=== PATIENT | female | born 1960 | race African-American/Black ===

== ENCOUNTER 2017-10-03 17:05 | Emergency (ER) | payer BC ==
[2017-10-03 17:39] LABS: ABS Basophils 0.1 10^3/ul (0-0.2); ABS Eosinophils 0.1 10^3/ul (0-0.6); ABS Lymphocytes 2.3 10^3/ul (1.0-4.8); ABS Monocytes 0.4 10^3/ul (0-0.8); ABS Neutrophils 4.6 10^3/ul (1.5-7.7); ABS Nucleated RBC 0 10^3/ul; Eosinophil % 1.8 % (0-6); Hematocrit 38 % (35-47); Hemoglobin 12.5 g/dl (12.0-16.0); Lymphocyte % 30.9 % (25-47); Mean Corpuscular HGB Conc 33 g/dl (31-36); Mean Corpuscular Hemoglobin 27 pg (27-31); Mean Corpuscular Volume 81 fL (80-97); Mean Platelet Volume 9 um3 (7.4-10.4); Nucleated Red Blood Cells % 0.1; Platelet Count 210 10^3/ul (150-450); Red Blood Count 4.73 10^6/ul (4.0-5.4); Red Cell Distribution Width 14 % (10.5-15); White Blood Count 7.4 10^3/ul (3.5-10.8)
[2017-10-03 17:48] LABS: INR 0.86 (0.77-1.02)
[2017-10-03 17:57] LABS: EGFR Non-African American 76.7 (>60)
--- NOTE | 2017-10-03 18:00 | ED ---
Lower Extremity - HPI Summary HPI Summary: 57-year-old presents with right calf pain for the past couple days. She states she was on her feet when it started. She states she has no pain at rest. She is concerned about blood clot. She denies any swelling to the area. She states her shoes are old and it may be due to such. She denies any numbness and tingling. She denies any injury. She is not a smoker. She denies any family history of blood clots. She denies any chest pain or shortness of breath. She states her shoes are old and works as nurse on the floor. - History of Current Complaint Chief Complaint: EDExtremityLower Stated Complaint: POSS DVT IN RT LEG Time Seen by Provider: 10/03/17 17:15 Pain Intensity: 6 - Allergies/Home Medications Allergies/Adverse Reactions: Allergies Allergy/AdvReac Type Severity Reaction Status Date / Time No Known Allergies Allergy Verified 11/24/15 10:21 PMH/Surg Hx/FS Hx/Imm Hx Endocrine/Hematology History: Denies: Hx Diabetes, Hx Thyroid Disease Cardiovascular History: Reports: Hx Hypertension - ON MEDS Denies: Hx Pacemaker/ICD Respiratory History: Denies: Hx Asthma, Hx Chronic Obstructive Pulmonary Disease (COPD) GI History: Reports: Hx Gastroesophageal Reflux Disease - WELL CONTROLLED Denies: Hx Ulcer History: Denies: Hx Renal Disease Musculoskeletal History: Reports: Hx Arthritis, Other Musculoskeletal History - CURRENT LEFT KNEE Sensory History: Reports: Hx Contacts or Glasses - GLASSES Denies: Hx Hearing Aid Opthamlomology History: Reports: Hx Contacts or Glasses - GLASSES Psychiatric History: Reports: Hx Depression Denies: Hx Panic Disorder - Surgical History Surgery Procedure, Year, and Place: HEMORRHOIDECTOMY 1983. UTERINE ALBATION . OVARY REMOVED A CHILD Hx Anesthesia Reactions: No Infectious Disease History: No Infectious Disease History: Denies: Hx Clostridium Difficile, Hx Hepatitis, Hx Human Immunodeficiency Virus (HIV), Hx of Known/Suspected MRSA, Hx Shingles, Hx Tuberculosis, Hx Known/ Suspected VRE, Hx Known/Suspected VRSA, History Other Infectious Disease, Traveled Outside the [place] in Last 30 Days - Family History Known Family History: Negative: Blood Disorder - Social History Alcohol Use: Weekly Substance Use Type: Reports: None Smoking Status (MU): Never Smoked Tobacco Review of Systems Negative: Fever Negative: Chest Pain Negative: Shortness Of Breath Positive: Myalgia - right calf pain All Other Systems Reviewed And Are Negative: Yes Physical Exam Triage Information Reviewed: Yes Vital Signs On Initial Exam: Initial Vitals Temp Pulse Resp BP Pulse Ox 97.7 F 73 18 171/101 99 10/03/17 17:08 10/03/17 17:08 10/03/17 17:08 10/03/17 17:08 10/03/17 17:08 Vital Signs Reviewed: Yes Appearance: Positive: Well-Appearing Skin: Positive: Warm, Dry Head/Face: Positive: Normal Head/Face Inspection Eyes: Positive: Normal, Conjunctiva Clear Respiratory/Lung Sounds: Positive: Clear to Auscultation, Breath Sounds Present Cardiovascular: Positive: Normal, RRR Musculoskeletal: Positive: Strength/ROM Intact - right calf, Other - good pulses , sensation grossly intact, tenderness right calf. Negative: Marcelle Sign Right, Edema Right Neurological: Positive: Normal Psychiatric: Positive: Normal Diagnostics - Vital Signs Vital Signs Temp Pulse Resp BP Pulse Ox 10/03/17 17:08 97.7 F 73 18 171/101 99 - Laboratory Lab Results: Lab Results 10/03/17 10/03/17 Range/Units 17:30 17:30 WBC 7.4 (3.5-10.8) 10^3/ul RBC 4.73 (4.0-5.4) 10^6/ul Hgb 12.5 (12.0-16.0) g/dl Hct 38 (35-47) % MCV 81 (80-97) fL MCH 27 (27-31) pg MCHC 33 (31-36) g/dl RDW 14 (10.5-15) % Plt Count 210 (150-450) 10^3/ul MPV 9 (7.4-10.4) um3 Neut % (Auto) 61.2 (38-83) % Lymph % (Auto) 30.9 (25-47) % [place] % (Auto) 5.3 (0-7) % Eos % (Auto) 1.8 (0-6) % Baso % (Auto) 0.8 (0-2) % Absolute Neuts (auto) 4.6 (1.5-7.7) 10^3/ul Absolute Lymphs (auto) 2.3 (1.0-4.8) 10^3/ul Absolute Monos (auto) 0.4 (0-0.8) 10^3/ul Absolute Eos (auto) 0.1 (0-0.6) 10^3/ul Absolute Basos (auto) 0.1 (0-0.2) 10^3/ul Absolute Nucleated RBC 0 10^3/ul Nucleated RBC % 0.1 INR (Anticoag Therapy) 0.86 (0.77-1.02) APTT 33.7 (26.0-36.3) seconds Result Diagrams: 10/03/17 17:30 10/03/17 17:30 Lab Statement: Any lab studies that have been ordered have been reviewed, and results considered in the medical decision making process. - Ultrasound No standard instances Ultrasound Interpretation: No Acute Changes Ultrasound Interpretation Completed By: Radiologist Lower Extremity Course/Dx - Course Course Of Treatment: 57-year-old presents with right calf pain for the past couple days. She states she was on her feet when it started. She states she has no pain at rest. She is concerned about blood clot. She denies any swelling to the area. She states her shoes are old and it may be due to such. She denies any numbness and tingling. She denies any injury. She is not a smoker. She denies any family history of blood clots. She denies any chest pain or shortness of breath. On exam tenderness right calf. No edema noted. Good pulses. Negative Homans. Ultrasound negative. Likely a sprain. Patient understands and agrees the plan. - Diagnoses Differential Diagnosis/HQI/PQRI: Positive: DVT, Sprain, Strain Provider Diagnoses: Right calf pain Discharge - Discharge Plan Condition: Good Disposition: HOME Patient Education Materials: Leg Cramps (ED) Referrals: Noreen Smith MD [Primary Care Provider] - Additional Instructions: Take Tylenol every 6 hours as needed for pain Apply ice, rest, elevate Try compression socks Follow up with primary care physician within 5 days Return to ED if develop any new or worsening symptoms
--- NOTE | 2017-10-03 18:04 | RAD ---
INDICATION: Pain and swelling. COMPARISON: None TECHNIQUE: Duplex interrogation of the Lowerextremity was performed. FINDINGS: Deep veins: The common femoral, great saphenous, profunda femoris, proximal, mid, and distal deep femoral, popliteal, posterior tibial, and peroneal veins are patent. There is normal compressibility, augmentation, and phasic flow. Superficial veins: There are no findings of superficial thrombophlebitis. Popliteal fossa:There is no evidence of a popliteal cyst. Soft tissues:There are no soft tissue abnormalities. IMPRESSION: Normal examination. No evidence of deep venous thrombosis
[2017-10-03 18:18] VITALS: BP 166/92
== END 2017-10-03 18:16 | disposition home or self-care (01) ==
LOC: ED 17:05
DX: M79.604 Pain in right leg (principal); Z86.79 Personal history of other diseases of the circulatory system; Z87.19 Personal history of other diseases of the digestive system
CPT/HCPCS: 36415; 80053; 85025; 85610; 85730; 99282

== ENCOUNTER 2018-12-14 07:33 | Emergency (ER) | payer BC ==
[2018-12-14 07:47] VITALS: BP 155/86
--- NOTE | 2018-12-14 08:05 | UC ---
Headache HPI - HPI Summary HPI Summary: 58-year-old female comes in with a chief complaint headache. It's a global headache which started 1-2 days ago. At worse is an 8 out of 10. Patient took some ibuprofen earlier today and that brought the headache down to a 6 out of 10. She is also nauseous. No fevers or chills no signs of sinusitis. She does have some decreased hearing in the left ear which is been going on for some time. No complaint of weakness or numbness or difficulty with speech. She did new eyeglasses 3 weeks ago. Initially she did get some headaches with the new eyeglasses but that headache has gone away. Sleeping doesn't really change the headache. No history of migraines. Patient believes the cause of the headache that she stopped taking her Celexa 20 mg daily one week ago without tapering. She's been unable to get into her primary care doctor to get a refill for the Celexa. - History Of Current Complaint Chief Complaint: UCMedRefill Stated Complaint: MED REFILL Time Seen by Provider: 12/14/18 07:43 Pain Intensity: 7 - Allergies/Home Medications Allergies/Adverse Reactions: Allergies Allergy/AdvReac Type Severity Reaction Status Date / Time No Known Allergies Allergy Verified 11/24/15 10:21 PMH/Surg Hx/FS Hx/Imm Hx Previously Healthy: Yes Cardiovascular History: Hypertension GI/ History: Gastroesophageal Reflux Psychological History: Depression - Surgical History Surgical History: None Surgery Procedure, Year, and Place: HEMORRHOIDECTOMY 1983. UTERINE ALBATION 2006. OVARY REMOVED A CHILD - Family History Known Family History: Negative: Blood Disorder - Social History Alcohol Use: Occasionally Substance Use Type: None Smoking Status (MU): Never Smoked Tobacco When Did the Patient Quit Smoking/Using Tobacco: 1982 Review of Systems All Other Systems Reviewed And Are Negative: Yes Constitutional: Positive: Negative Skin: Positive: Negative Eyes: Positive: Other - see hpi ENT: Positive: Other - see hpi Respiratory: Positive: Negative Cardiovascular: Positive: Negative Gastrointestinal: Positive: Nausea Motor: Positive: Negative Neurovascular: Positive: Negative Musculoskeletal: Positive: Negative Neurological: Positive: Headache Psychological: Positive: Negative Is Patient Immunocompromised?: No Physical Exam Triage Information Reviewed: Yes Appearance: Well-Appearing, No Pain Distress, Well-Nourished Vital Signs: Initial Vital Signs Temp 97.5 F 12/14/18 07:39 Pulse 61 12/14/18 07:39 Resp 16 12/14/18 07:39 BP 155/86 12/14/18 07:39 Pulse Ox 97 12/14/18 07:39 Vital Signs Reviewed: Yes Eye Exam: Normal Eyes: Positive: Conjunctiva Clear, Other: - PERRLA/EOMI, NO PHOTOPHOBIA ENT: Positive: TMs normal - ON RIGHT, LEFT EAR CANAL CERUMEN IMPACTION. Negative: Nasal drainage Neck: Positive: Supple Respiratory: Positive: Lungs clear, Normal breath sounds, No respiratory distress Cardiovascular: Positive: RRR Musculoskeletal Exam: Normal Musculoskeletal: Positive: Strength Intact, ROM Intact Neurological Exam: Normal Neurological: Positive: Alert, Muscle Tone Normal, Other: - NO FOCAL NEUROLOGIC DEFICIT Psychological Exam: Normal Psychological: Positive: Normal Response To Family, Age Appropriate Behavior Skin Exam: Normal Headache Course/Dx - Course Course Of Treatment: We discussed different causes of headaches. At this time undergo ahead and restart the Celexa 20 mg daily. If the headache goes away that it's almost certainly due to withdrawal from Celexa. We discussed that if it does not get better for gets worse she needs to reevaluated. Left ear was irrigated by nursing with success and the left TM is normal on examination. - Differential Dx/Diagnosis Provider Diagnosis: Headache, Left ear impacted cerumen Discharge - Sign-Out/Discharge Documenting (check all that apply): Patient Departure All imaging exams completed and their final reports reviewed: No Studies - Discharge Plan Condition: Stable Disposition: HOME Prescriptions: Citalopram TAB* [CeleXA TAB*] 20 mg PO DAILY #30 tab Patient Education Materials: Cerumen Impaction (ED), Acute Headache (ED) Referrals: Noreen Smith MD [Primary Care Provider] - Additional Instructions: FOLLOW UP WITH YOUR DOCTOR. GET REEVALUATED SOONER IF YOUR CONDITION WORSENS; HEADACHE, WEAKNESS, NUMBNESS, CHANGES IN VISION OR SPEECH OR ANY QUESTIONS OR CONCERNS. - Billing Disposition and Condition Condition: STABLE Disposition: Home
== END 2018-12-14 08:15 | disposition home or self-care (01) ==
LOC: UCEAST 07:33
DX: R51 Headache (principal); H61.22 Impacted cerumen, left ear; F32.9 Major depressive disorder, single episode, unspecified; Z76.0 Encounter for issue of repeat prescription; I10 Essential (primary) hypertension; K21.9 Gastro-esophageal reflux disease without esophagitis; Z87.891 Personal history of nicotine dependence
CPT/HCPCS: 99213; G0463

== ENCOUNTER 2023-01-06 23:33 | Observation (INO) ==
[2023-01-06] MEDS ORDERED: Lactated Ringers 1000 ml BAG 1,000 ML IV ONE (23:51)
[2023-01-07 00:15] LABS: ABS Basophils 0.1 10^3/uL (0.0-0.1); ABS Eosinophils 0.2 10^3/uL (0.0-0.5); ABS Lymphocytes 2.8 10^3/uL (1.0-4.8); ABS Monocytes 0.7 10^3/uL (0.0-0.9); ABS Nucleated RBC 0.03 10^3/ul; Eosinophil % 2.6 %; Hematocrit 39.5 % (35-45); Hemoglobin 13.1 g/dL (11.5-14.3); Lymphocyte % 35.9 %; Mean Corpuscular Hemoglobin 26.3 pg (27-33); Mean Corpuscular Hgb Conc 33.1 g/dL (31-36); Mean Corpuscular Volume 79.6 fL (80-97); Mean Platelet Volume 8.8 fL (7.5-11.2); Nucleated Red Blood Cells % 0.3 /100 WBC (0.0-0.4); Platelet Count 246 10^3/uL (150-450); Red Blood Count 4.96 10^6/uL (3.63-4.92); Red Cell Distribution Width 13.9 % (12-17); White Blood Count 7.7 10^3/uL (3.8-11.8)
[2023-01-07 00:36] LABS: Albumin 4.5 g/dL (3.2-5.2); Calcium 10.1 mg/dL (8.6-10.3); Creatinine, Serum 0.93 mg/dL (0.51-0.95); Globulin 2.3 g/dL (2-4); Potassium 3.8 mmol/L (3.5-5.0); Total Bilirubin 0.5 mg/dL (0.2-1.0); Total Protein 6.8 g/dL (6.4-8.9); eGFR CKD-EPI 70.4 (>60)
[2023-01-07] MEDS ORDERED: Acetaminophen IV 1 GM/100ML 1,000 MG/100 ML BAG IV ONE (01:29)
[2023-01-07 01:40] LABS: High Sensitivity Troponin 1 Hr 3 pg/mL (<15)
[2023-01-07] MEDS ORDERED: Iohexol 350 (CONTRAST) 500 ML MDV IV ONE (02:26)
[2023-01-07] MEDS ORDERED: Lorazepam PYXIS KEY PRN (04:06)
[2023-01-07] MEDS ORDERED: LORazepam 2 mg VIAL 1 ml IV PUSH ONE (04:06)
[2023-01-07] MEDS ORDERED: Aspirin EC 325 mg TAB.EC PO ONE (04:22)
[2023-01-07 05:40] LABS: ABS Basophils 0.1 10^3/uL (0.0-0.1); ABS Eosinophils 0.2 10^3/uL (0.0-0.5); ABS Lymphocytes 2.2 10^3/uL (1.0-4.8); ABS Monocytes 0.6 10^3/uL (0.0-0.9); ABS Neutrophils 4.3 10^3/uL (1.5-7.6); ABS Nucleated RBC 0.01 10^3/ul; Eosinophil % 2.9 %; Hematocrit 36.2 % (35-45); Hemoglobin 11.9 g/dL (11.5-14.3); Lymphocyte % 30.2 %; Mean Corpuscular Hemoglobin 26.2 pg (27-33); Mean Corpuscular Hgb Conc 32.9 g/dL (31-36); Mean Corpuscular Volume 79.6 fL (80-97); Mean Platelet Volume 8.3 fL (7.5-11.2); Nucleated Red Blood Cells % 0.1 /100 WBC (0.0-0.4); Platelet Count 223 10^3/uL (150-450); Red Blood Count 4.55 10^6/uL (3.63-4.92); Red Cell Distribution Width 13.9 % (12-17); White Blood Count 7.4 10^3/uL (3.8-11.8)
[2023-01-07 06:10] LABS: Calcium 9.6 mg/dL (8.6-10.3); Potassium 3.6 mmol/L (3.5-5.0)
[2023-01-07 06:16] LABS: Creatinine, Serum 0.86 mg/dL (0.51-0.95); eGFR CKD-EPI 77.3 (>60)
[2023-01-07] MEDS ORDERED: Potassium EFFERVES 25 meq TAB PO ONE (07:17)
[2023-01-07] MEDS ORDERED: TRIAMTERENE HYDROCHLOROTHIAZID PO SCH (09:00)
[2023-01-07] MEDS ORDERED: Lactated Ringers 1000 ml BAG 1,000 ML IV SCH (15:00)
[2023-01-07] MEDS ORDERED: Magnesium Sulfate 2 gm BAG 2 GM/50 ML BAG IVPB ONE (18:51)
[2023-01-07 19:53] LABS: Magnesium 1.9 mg/dL (1.9-2.7)
[2023-01-08 06:33] LABS: Magnesium 2.4 mg/dL (1.9-2.7)
[2023-01-08] MEDS ORDERED: Butalb/Acetamin/Caff TAB 325-50-40MG PO ONE (12:12)
[2023-01-08] MEDS ORDERED: Enoxaparin 40 MG/0.4 ML SYR SUBCUT SCH (13:00)
[2023-01-08] MEDS ORDERED: Lorazepam PYXIS KEY PRN (13:57)
[2023-01-08] MEDS ORDERED: LORazepam 2 mg VIAL 1 ml IV PUSH ONE (13:58)
[2023-01-08] MEDS ORDERED: Magnesium Sulfate 2 gm BAG 2 GM/50 ML BAG IVPB ONE (14:57)
[2023-01-08 15:02] LABS: C Reactive Protein 12.99 mg/L (<8.01)
[2023-01-09 10:58] VITALS: BP 150/92
== END 2023-01-09 12:49 | disposition home or self-care (01) ==
LOC: ED 23:33 → INTOOBSV 01-07 04:37 → SUATTDRO 01-07 04:37 → EDHOLD 01-07 04:37 → SUATTDRO 01-07 04:38 → EDHOLD 01-07 08:45 → MEDTELE 01-07 10:11
PROVIDERS: ADMIT Hospitalist; ATTEND Internal Medicine